=== PATIENT | female | born 1960 | race Caucasian/White ===

== ENCOUNTER → 2022-09-15 | Outpatient (CLI) | payer MEDICARE ==
[~2022-09-15] MED LIST: MELO-198 PO
--- NOTE | 2022-09-15 16:50 | Diagnostic Imaging Report ---
INDICATION: Hip pain. 2 views were obtained. FINDINGS: The alignment is normal. No fracture or dislocation. Soft tissues are unremarkable. IMPRESSION: No acute fracture or dislocation of the right hip. Dictated by: Dictated on workstation # [id number]
--- NOTE | 2022-09-15 18:13 | Diagnostic Imaging Report ---
CliNICAL INDICATIONS: No known injury. Patient with back pain and hip pain. EXAM: X-ray of the lumbar spine, 3 views. COMPARISONS: MRI of the lumbar spine without contrast dated 04/15/2014. FINDINGS: There is no acute lumbar spine fracture or dislocation. There are degenerative spurs involving the lower lumbar spine. Stable moderate loss of disk space height at the L5-S1 level. Lower lumbar spine facet arthropathy is seen. Sacroiliac joint shows no significant abnormality. 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 Dictated by: Dictated on workstation # [id number]
== END ==
LOC: RAD 13:20
PROVIDERS: ATTEND Family Medicine
DX: M47.816 Spondylosis without myelopathy or radiculopathy, lumbar region (principal)
CPT/HCPCS: 72100; 73502